=== PATIENT | male | born 1965 | race Caucasian/White ===

== ENCOUNTER 2019-02-15 23:40 | Emergency (ER) | payer SELFPAY ==
[~2019-02-15] VITALS: Ht 182.9 cm; Wt 87.5 kg
[2019-02-15 23:45] VITALS: BP 136/85
--- NOTE | 2019-02-15 23:45 | NUR ---
TO LOBBY A/W BED, AMBULATORY, NO BLEEDING AT THIS TIME
--- NOTE | 2019-02-16 01:00 | NUR ---
NO BLEEDING AT THIS TIME. NO NEW NEEDS STATED.
--- NOTE | 2019-02-16 02:34 | NUR ---
patient amb to bed 3 with steady gait
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
[2019-02-16 04:28] VITALS: BP 136/79
== END 2019-02-16 04:28 | disposition home or self-care (01) ==
LOC: MED 23:40
DX: S61.012A Laceration without foreign body of left thumb without damage to nail, initial encounter (principal); Z88.0 Allergy status to penicillin; W26.0XXA Contact with knife, initial encounter; Y93.89 Activity, other specified; Y92.89 Other specified places as the place of occurrence of the external cause; Y99.8 Other external cause status
CPT/HCPCS: 12001; 99283